=== PATIENT | male | born 1975 | race Caucasian/White ===

== ENCOUNTER 2024-01-14 14:18 | Emergency (ER) | payer SELFPAY ==
[2024-01-14] MEDS ORDERED: Iopamidol-370 76% 500 ML MDV (1 ML CHARGE) ONE (15:08)
[2024-01-14 15:21] LABS: #Basophils 0.04 10x3/uL (0.0-0.2); %Basophils 0.7 % (0.0-1.0); %Eosinophils 1.5 % (0.0-10.0); %Lymphocytes 13.3 % (21.0-51.0); %Monocytes 14.9 % (0.0-10.0); %Neutrophils 69.3 % (42.0-75.0); Hematocrit 47.9 % (42.0-52.0); Mean Corpuscular HGB CONC 35.5 g/dL (32.0-36.0); Mean Corpuscular Hemoglobin 31.5 pg (27.0-31.0); Mean Corpuscular Volume 88.7 fL (78.0-98.0); Mean Platelet Volume 10.6 fL (7.4-10.4); Platelet Count 191 10x3/uL (130-400); RBC Distribution Width 12.8 % (11.5-14.5)
[2024-01-14] MEDS ORDERED: Acetaminophen 500 MG TAB ONE (15:27)
[2024-01-14] MEDS ORDERED: Azithromycin 500 MG VIAL ONE (15:27)
[2024-01-14] MEDS ORDERED: cefTRIAXone (ROCEPHIN) 1 GM VIAL ONE (15:28)
[2024-01-14 15:31] LABS: ALT (SGPT) 37 U/L (8-55); AST (SGOT) 20 U/L (5-34); Albumin 3.7 g/dL (3.5-5.0); Alkaline Phosphatase 94 U/L (40-110); Anion Gap 13 mmol/L (10-20); BUN (Urea Nitrogen) 13 mg/dL (8.9-20.6); Bilirubin, Total 0.6 mg/dL (0.2-1.2); Calc. Creatinine Clearance 0 mL/min (70-130); Calcium 9.3 mg/dL (7.8-10.44); Carbon Dioxide 22 mmol/L (22-29); Chloride 103 mmol/L (98-107); Estimated GFR 85; Globulin 3.9 g/dL (2.4-3.5); Glucose 104 mg/dL (70-105); Potassium 4.7 mmol/L (3.5-5.1); Protein, Total 7.6 g/dL (6.0-8.3); Sodium 133 mmol/L (136-145)
[2024-01-14 17:05] LABS: Troponin I 0.022 ng/mL (< 0.028)
[2024-01-14] MEDS ORDERED: Ondansetron ODT 4 MG TAB PO PRN (17:58)
[2024-01-14] MEDS ORDERED: Acetaminophen 325 MG TAB PO PRN (17:58)
[2024-01-14] MEDS ORDERED: Acetaminophen 650 MG Suppository PR PRN (17:58)
[2024-01-14] MEDS ORDERED: Ipratropium/Albuterol 3 ML NEB ONE (18:02)
== END 2024-01-14 18:20 | disposition left against medical advice (07) ==
LOC: ERS 14:18
DX: R09.02 Hypoxemia (principal); R06.00 Dyspnea, unspecified; J44.9 Chronic obstructive pulmonary disease, unspecified; F17.210 Nicotine dependence, cigarettes, uncomplicated
CPT/HCPCS: 36416; 71045; 71275; 80053; 83605; 83880; 84484; 85025; 87040; 87149; 93005; 94760; 96374; 96375; J0456; J0696; J7620; Q9967